=== PATIENT | female | born 1995 | race Caucasian/White ===

== ENCOUNTER 2019-07-29 13:45 | Outpatient (RCR) | payer OTHER | END 2019-10-08 | disposition home or self-care (01) | LOC: WSOH | DX: S16.1XXA Strain of muscle, fascia and tendon at neck level, initial encounter (principal); S39.012A Strain of muscle, fascia and tendon of lower back, initial encounter; W01.0XXA Fall on same level from slipping, tripping and stumbling without subsequent striking against object, initial encounter ==